=== PATIENT | female | born 1965 | race Caucasian/White ===

== ENCOUNTER 2023-02-10 10:45 | Outpatient (CLI) | payer OTHER | END 2023-02-10 10:46 | disposition critical access hospital (66) | LOC: EMS 10:45 | DX: M54.50 Low back pain, unspecified (principal); R07.81 Pleurodynia; R10.11 Right upper quadrant pain; R40.4 Transient alteration of awareness; V80.010A Animal-rider injured by fall from or being thrown from horse in noncollision accident, initial encounter; Y93.52 Activity, horseback riding; Y92.39 Other specified sports and athletic area as the place of occurrence of the external cause | CPT/HCPCS: A0425; A0429 ==

== ENCOUNTER 2023-02-10 10:53 | Emergency (ER) | payer OTHER ==
[2023-02-10] MEDS ORDERED: IBUPROFEN 600 MG TABLET PO STA (10:56)
[2023-02-10] MEDS ORDERED: ACETAMINOPHEN 500 MG TABLET PO STA (10:56)
--- NOTE | 2023-02-10 10:58 | ED Physician Documentation ---
PD HPI BACK PAIN - Stated complaint Stated Complaint: FALL FROM HORSE - History obtained from History obtained from: Patient, EMS - Additional information Additional information: She was bucked off her horse and fell. Her only complaint is low back pain. There was reported loss of consciousness but she says she remembers the fall and does not have a headache or neck pain. She has a history of back pain but now it is much worse. This happened just prior to arrival. PD PAST MEDICAL HISTORY - Present Medications Home Medications: Ambulatory Orders Medication Instructions Recorded Confirmed Liothyronine [Cytomel] 25 mcg PO QDAC 02/10/23 02/10/23 Mercaptopurine 50 mg PO DAILY 02/10/23 02/10/23 - Allergies Allergies/Adverse Reactions: Allergies Allergy/AdvReac Type Severity Reaction Status Date / Time No Known Drug Allergies Allergy Verified 02/10/23 10:56 PD ED PE NORMAL - Vitals Vital signs reviewed: Yes - General General: Alert and oriented X 3, Well developed/nourished, Other (Appears u ncomfortable related to low back pain) - HEENT HEENT: PERRL, EOMI - Neck Neck: Supple, no meningeal sign, No bony TTP - Cardiac Cardiac: RRR, No murmur - Respiratory Respiratory: No respiratory distress, Clear bilaterally, Other (Mild right lat eral low rib tenderness) - Abdomen Abdomen: Soft, Non tender - Back Back: Other (Severely tender to the right low back, to the right of midline.) - Derm Derm: Normal color, Warm and dry - Extremities Extremities: No deformity, No tenderness to palpate, Normal ROM s pain, No edema - Neuro Neuro: Alert and oriented X 3, 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 Eye Opening: Spontaneous Motor: Obeys Commands Verbal: Oriented GCS Score: 15 Results - Vitals Vitals: Vital Signs - 24 hr 02/10/23 02/10/23 02/10/23 10:56 11:17 12:16 Temperature 37.2 C Heart Rate 73 64 66 Respiratory 20 18 16 Rate Blood Pressure 117/92 H 128/73 117/60 O2 Saturation 96 96 96 Oxygen O2 Source Room air - Labs Labs: Laboratory Tests 02/10/23 02/10/23 11:31 11:31 WBC 10.9 H RBC 3.87 L Hgb 12.1 Hct 37.7 MCV 97.4 MCH 31.3 H MCHC 32.1 RDW 13.0 Plt Count 218 MPV 9.2 Neut # (Auto) 8.5 H Lymph # (Auto) 1.4 L [place] # (Auto) 0.7 Eos # (Auto) 0.1 Baso # (Auto) 0.1 Absolute Nucleated RBC 0.00 Nucleated RBC % 0.0 Sodium 139 Potassium 3.9 Chloride 105 Carbon Dioxide 25 Anion Gap 9.0 BUN 37 H Creatinine 0.6 Estimated GFR (MDRD) 103 Glucose 171 H Calcium 8.4 L - Rads (name of study) Ct Chest w IV contrast Relevant Findings:: Final report received, EMP independent interpretation of test PD Medical Decision Making - ED course ED course: 57-year-old woman quite uncomfortable after a fall with mostly back pain. Initially declined anything except for Tylenol and ibuprofen but on recheck shortly thereafter she was writhing in pain and requested narcotic analgesia. Her CT imaging demonstrated multiple spinous and transverse process fractures as well as a psoas hematoma. This probably needs overnight observation. Note made that we do not have a surgeon this weekend, and even if we do, in an ideal circumstance she would be observed in a trauma center that has access to inte rventional radiology should she need something like embolization. As such we reached out to [facility] and she was excepted by Dr. Lino there at 1:10 PM. [place] are completed and she is stable for transport with reassuring vital signs. Departure - Departure Disposition: 02 Transfer Acute Care Hosp Clinical Impression: Multiple transverse process fractures, Spinous process fracture, Retroperitoneal hematoma Condition: Serious
[2023-02-10] MEDS ORDERED: KETOROLAC 15 MG/ML VIAL IVP STA (11:27)
[2023-02-10] MEDS ORDERED: HYDROmorphone 1 MG/ML CARPUJECT IVP STA (11:27)
[2023-02-10 11:39] LABS: BASOPHILS # (AUTO) 0.1 10^3/uL (0.0-0.1); BASOPHILS % (AUTO) 0.6 %; EOSINOPHILS # (AUTO) 0.1 10^3/uL (0.0-0.7); EOSINOPHILS % (AUTO) 0.6 %; HCT - HEMATOCRIT 37.7 % (37.0-47.0); HGB - HEMOGLOBIN 12.1 g/dL (12.0-16.0); LYMPHOCYTES # (AUTO) 1.4 10^3/uL (1.5-3.5); LYMPHOCYTES % (AUTO) 13.1 %; MEAN CORPUSCULAR HEMOGLOBIN 31.3 pg (27.0-31.0); MEAN CORPUSCULAR HGB CONC 32.1 g/dL (32.0-36.0); MEAN CORPUSCULAR VOLUME 97.4 fL (81.0-99.0); MEAN PLATELET VOLUME 9.2 fL (7.9-10.8); MONOCYTES # (AUTO) 0.7 10^3/uL (0.0-1.0); MONOCYTES % (AUTO) 6.7 %; NEUTROPHILS # (AUTO) 8.5 10^3/uL (1.5-6.6); NEUTROPHILS % (AUTO) 77.5 %; PLT - PLATELET COUNT 218 10^3/uL (130-450); RED BLOOD COUNT 3.87 10^6/uL (4.20-5.40); WHITE BLOOD COUNT 10.9 x10^3/uL (4.8-10.8)
[2023-02-10 11:45] LABS: CALCIUM 8.4 mg/dL (8.5-10.3); CREATININE 0.6 mg/dL (0.4-1.0); POTASSIUM 3.9 mmol/L (3.5-5.0)
[2023-02-10] MEDS ORDERED: iohexoL-300 100 ML VIAL ONE (11:55)
--- NOTE | 2023-02-10 12:50 | CT Report ---
PROCEDURE: CHEST W INDICATIONS: Back and rib trauma, IV only CONTRAST: 100ml omni 300 TECHNIQUE: After the administration of intravenous contrast, 1 mm axial images were acquired from the pulmonary apices through the posterior costophrenic angles. Axial 5 mm soft tissue kernel reconstructions were performed as well as 8 mm axial MIP and coronal and sagittal 5 mm reformations. For radiation dose reduction, the following was used: automated exposure control, adjustment of mA and/or kV according to patient size. COMPARISON: None. FINDINGS: Image quality: Excellent. Lungs and pleura: No consolidation. No pleural effusions. No pneumothorax. No suspicious pulmonary n odules which require follow up. [place] dependent atelectasis may obscure small pulmonary hematoma Mediastinum: Heart size is normal. No pericardial effusions. No mediastinal adenopathy by size criter ia. No large vessel abnormality. Chest wall and lower neck: Thyroid is unremarkable. No axillary or supraclavicular adenopathy by size . Bones: No aggressive osseous abnormality. Transverse process fracture of L2. Questionable angulation of the anterior right fourth and fifth ribs suggestive of nondisplaced fracture. Upper Abdomen: Calcified splenic aneurysm. IMPRESSION: 1.Right transverse process fracture of L2. 2.Questionable anterior right fourth and fifth rib fractures. 3.[place] dependent atelectasis may obscure small volume of posterior pulmonary hemorrhage. Reviewed by: Rogelio Condon MD on 02/10/2023 11:49 AM MARCO A Approved by: Rogelio Condon MD on 02/10/2023 11:49 AM MARCO A Station ID: [id number]
[2023-02-10] MEDS ORDERED: iohexoL-300 100 ML VIAL IVP ONE (13:01)
--- NOTE | 2023-02-10 13:01 | CT Report ---
PROCEDURE: ABDOMEN/PELVIS W INDICATIONS: Back and rib trauma, IV only CONTRAST: 100ml omni 300 TECHNIQUE: After the administration of intravenous contrast, 5 mm thick sections acquired from the diaphragms to the symphysis. 5 mm thick coronal and sagittal reformats were acquired. For radiation dose reducti on, the following was used: automated exposure control, adjustment of mA and/or kV according to dee ent size. COMPARISON: CT chest from same date FINDINGS: Image quality: Excellent. Lung bases and heart: Unremarkable. Liver: No solid mass. Gallbladder and biliary tree: Normal Spleen: No splenomegaly. Calcified splenic aneurysm. Pancreas: No pancreatic ductal dilation. Adrenals: No adrenal nodule. Kidneys and ureters: No hydronephrosis. No renal cystic lesion which requires follow up. No solid mas s. Bowel and peritoneum: No bowel distension. No pathologic free fluid. Lymph nodes: No central or retroperitoneal adenopathy. Vessels: No infrarenal aortic aneurysm. PELVIS Reproductive organs: Unremarkable. Bladder: No abnormal wall thickening, accounting for underdistension. Pelvic lymph nodes: No pelvic adenopathy by size criteria. Bones: Moderately displaced right second through fifth transverse process fractures with large adjace nt inflammatory changes of the right psoas muscle consistent with hematoma. Spinous process fractures of L3-L4 and L5, nondisplaced. Other: No significant ventral or inguinal hernia. Superficial right flank soft tissue hematoma. IMPRESSION: 1.Transverse process fractures of the right L2-L5 with adjacent psoas muscle hematoma. 2.Spinous process fractures of L3-L5. Findings were discussed with Dr Andrews on 02/10/2023 at 02/10/2023. Reviewed by: Rogelio Condon MD on 02/10/2023 12:00 PM AKJOVANA Approved by: Rogelio Condon MD on 02/10/2023 12:00 PM AKJOVANA Station ID: [id number]
--- NOTE | 2023-02-10 13:02 | CT Report ---
PROCEDURE: LUMBAR SPINE WO INDICATIONS: chest/back inj TECHNIQUE: Noncontrast 3 mm thick sections acquired from the T12 level to the sacrum. Sagittal and coronal refo rmats were constructed. For radiation dose reduction, the following was used: automated exposure co ntrol, adjustment of mA and/or kV according to patient size. COMPARISON: CT chest abdomen and pelvis from same date FINDINGS: Image quality: Excellent. Bones: There is normal bony alignment. No acute vertebral body compression fractures. No suspiciou s lytic or blastic bony lesions. Central spinal caliber is of normal overall caliber. No pars defec ts. Transverse process fractures of the right L2-L5 with associated right psoas muscle hematoma. Nondisplaced spinous process fractures of L3-L5. IMPRESSION: 1.Transverse process fractures of the right L2-L5. 2.Spinous process fractures of L3-L5. 3.Right psoas hematoma. Reviewed by: Rogelio Condon MD on 02/10/2023 12:01 PM [facility] A Approved by: Rogelio Condon MD on 02/10/2023 12:01 PM [facility] A Station ID: [id number]
[2023-02-10 14:33] VITALS: BP 119/47
[2023-02-10 14:55] LABS: PT - PROTHROMBIN TIME 11.4 secs (9.9-12.6)
== END 2023-02-10 14:36 | disposition short-term general hospital (02) ==
LOC: ED 10:53
DX: S32.028A Other fracture of second lumbar vertebra, initial encounter for closed fracture (principal); S32.038A Other fracture of third lumbar vertebra, initial encounter for closed fracture; S32.048A Other fracture of fourth lumbar vertebra, initial encounter for closed fracture; S32.058A Other fracture of fifth lumbar vertebra, initial encounter for closed fracture; X58.XXXA Exposure to other specified factors, initial encounter; Y93.52 Activity, horseback riding; Z20.822 Contact with and (suspected) exposure to COVID-19
CPT/HCPCS: 36415; 71260; 72131; 74177; 80048; 85025; 85610; 87635; 96374; 99285; A9270; Q9967